=== PATIENT | male | born 1975 | race African-American/Black ===

== ENCOUNTER 2018-03-27 21:54 | Emergency (ER) | payer MEDICAID ==
--- NOTE | 2018-03-27 22:21 | EDPHY ---
H & P Stated Complaint: FEELING "SUICIDIAL X 3 WEEKS" AND A SNAKE BITE ME BY MY BALLS " Time Seen by Provider: 03/27/18 22:06 HPI/ROS: CHIEF COMPLAINT: "I think I was bitten by a snake between my balls" HISTORY OF PRESENT ILLNESS: 42-year-old homeless male history of schizophrenia took a taxi to the ER to discuss his psychiatric medications which he has been out of for the past 1 month after being released from [facility]. He is also complaining of 1 week of left testicle discomfort after he believes he was bitten by a snake to the left testicle while [place] the light rail. He denies : Hallucination, chest pain, dyspnea, suicidal or homicidal ideation, dysuria, hematuria, increased frequency, urethral discharge, straddle injury REVIEW OF SYSTEMS: A ten point review of systems was performed and is negative with the exception of the items mentioned in the HPI PAST MEDICAL & SURGICAL HISTORY: Schizophrenia. SOCIAL HISTORY: Homeless. Denies acute alcohol or drug use PHYSICAL EXAM (Prior to examination, patient consented to physical exam, hands were washed and my usual and customary physical exam procedures followed) 1) GENERAL: Well-developed, well-nourished, alert and oriented. Appears to be in no acute distress. 2) HEAD: Normocephalic, atraumatic 3) HEENT: Pupils equal, round, reactive to light bilaterally. Sclera anicteric. Nasopharynx, oropharynx, clear, no lesions. Moist Mucous membranes. 4) NECK: Full range of motion, no meningeal signs. 5) LUNGS: Clear auscultation bilaterally, no wheezes, no rhonchi, no retractions. 6) HEART: Regular rate and rhythm, no murmur, no heave, no gallop. 7) ABDOMEN: No guarding, no rebound, no focal tenderness, negative McBurney's, negative Brooks's, negative Rovsing's, negative peritoneal sign, 8) MUSCULOSKELETAL: Moving all extremities, no focal areas of tenderness, no obvious trauma. No peripheral edema or discoloration. 9) BACK: No CVA tenderness, no midline vertebral tenderness, no fluctuance, no step-off, no obvious trauma, no visual or palpable abnormality. 10) SKIN: No rash, no petechiae. 11) Psychiatric: Patient is oriented X 3, there is no agitation. 12) : Normal male external genitalia bilateral testicles nontender, no signs of Jeet's gangrene or cellulitis, no mass no lesions bilateral cremasteric reflex present and brisk. No signs of trauma. No fang hernández. DIFFERENTIAL DIAGNOSIS: Testicular pain including but not limited to epididymitis, orchitis, referred pain from kidney stone, inguinal hernia, and torsion of the testicle. - Personal History Current Tetanus/Diphtheria Vaccine: Unsure Current Tetanus Diphtheria and Acellular Pertussis (TDAP): Unsure - Medical/Surgical History Hx Asthma: No Hx Chronic Respiratory Disease: No Hx Diabetes: No Hx Cardiac Disease: No Hx Renal Disease: No Hx Cirrhosis: No Hx Alcoholism: No Hx HIV/AIDS: No Hx Splenectomy or Spleen Trauma: No Other PMH: SKIZOPHRENIA, DEPRESSION, ANXIETY, - Social History Smoking Status: Heavy smoker Constitutional: Initial Vital Signs Temperature (C) 36.9 C 03/27/18 21:55 Heart Rate 70 03/27/18 21:55 Respiratory Rate 18 03/27/18 21:55 Blood Pressure 163/87 H 03/27/18 21:55 O2 Sat (%) 97 03/27/18 21:55 O2 Delivery Mode Room Air Allergies/Adverse Reactions: No Known Allergies Allergy (Unverified 03/27/18 22:02) Home Medications: Medication Instructions Recorded NK [No Known Home Meds] 03/27/18 Medical Decision Making - Diagnostics Imaging Results: Imaging Impressions Testicular Ultrasound 03/27/18 22:17 Impression: 1. No intratesticular masses or testicular torsion. 2. Small bilateral hydroceles. 3. No definite inflammatory changes. Findings and recommendations discussed with Emergency Department physicianGabriel at 23:21 hour, 03/27/2018. Final report concurs with initial preliminary interpretation. Images reviewed myself ED Course/Re-evaluation: 10:20 p.m.: Will obtain testicular ultrasound and obtain urinalysis. Low clinical suspicion for testicular torsion. Regarding patient's ongoing mental health issues, states he has been off of medication for 1 month. He denies hallucination, denies suicidal or homicidal ideation. I do not think he is gravely disabled. I do not think that he meets criteria for an M1 hold. I have offered to send him to the [id number] walk-in center which he is agreeable with. 11:25 p.m. testicular ultrasound interpreted by radiologist positive for hydrocele otherwise negative. Re-evaluation. Discussed his ultrasound results negative for torsion. On exam he has no evidence of Jeet's gangrene or cellulitis. He was unable to provide urine sample in the emergency department. He continues to denies suicidal or homicidal ideation, is answering questions appropriately. I do not think he is gravely disabled.. At this time I do not think he meets criteria for an M1 hold. He would like to speak with a mental health provider and we have provided him a taxi voucher to go to the 24 hour [facility] walk-in clinic. He is agreeable with this plan. - Data Points Laboratory Results: 03/27/18 03/27/18 23:20 23:20 Urine Color YELLOW Urine Appearance CLEAR Urine pH 5.0 (5.0-7.5) Ur Specific [place] 1.029 (1.002-1.030) Urine Protein NEGATIVE (NEGATIVE) Urine Ketones NEGATIVE (NEGATIVE) Urine Blood NEGATIVE (NEGATIVE) Urine Nitrate NEGATIVE (NEGATIVE) Urine Bilirubin NEGATIVE (NEGATIVE) Urine Urobilinogen 4.0 EU H EU (0.2-1.0) Ur Leukocyte Esterase NEGATIVE (NEGATIVE) Urine RBC 1-3 /hpf /hpf (0-3) Urine WBC 1-3 /hpf /hpf (0-3) Ur Epithelial Cells NONE SEEN /lpf /lpf (NONE-1+) Hyaline Casts 1-5 /lpf /lpf (0-1) Urine Mucus TRACE /lpf /lpf (NONE-1+) Urine Glucose NEGATIVE (NEGATIVE) C.trachomatis RNA (TMA) Pending N.gonorrhoeae RNA (TMA) Pending Departure - Departure Disposition: Home, Routine, Self-Care Clinical Impression: Hydrocele Qualifiers: Hydrocele type: unspecified Qualified Code(s): N43.3 - Hydrocele, unspecified Condition: Good Instructions: Hydrocele (ED), Testicle Pain (ED) Additional Instructions: Return to the ER if you develop new or worsening testicle pain, if you develop pain with urination or any other symptoms that concern you. Recommend you wear an athletic supporter or briefs. Referrals: [facility] [Clinic] - 03/27/18 11:55 pm (Go directly to [facility] at [address] [facility] in [place])
[2018-03-27 23:34] VITALS: BP 146/94
[2018-03-29 12:12] LABS: GC AMPLIFICATION GENPROBE NEGATIVE (NEGATIVE)
== END 2018-03-27 23:43 | disposition home or self-care (01) ==
DX: N43.3 Hydrocele, unspecified (principal); F20.9 Schizophrenia, unspecified; F17.200 Nicotine dependence, unspecified, uncomplicated; Z59.0 Homelessness